=== PATIENT | female | born 1935 | race Caucasian/White ===

== ENCOUNTER 2016-09-22 06:13 | Inpatient (IN) | payer MEDICARE, OTHER ==
--- NOTE | 2016-09-21 21:30 | NUR ---
PT KENRICK GOMEZ, TOOK MEDICATION PER ORDER. APPROPRIATE CONVERSTAION AT THIS TIME. FRESH ICE TO RT HIP. CARLITOS WRAP CONTINUES, SCD'S, BARB LUBIN, HEEL PROTECTORS IN PLACE.
[~2016-09-22] VITALS: Ht 149.9 cm; Wt 42.2 kg
[~2016-09-22 06:13] MED LIST: ACETAMINOPHEN325 M1 PO; ATORVASTATIN CA10 MG PO; COLACE100 MG PO; FUROSEMIDE20 MG PO; HYDROCODON-ACE1 EA10 PO; K EFFERVESCENT25 MEQ PO; LEVOTHYROXINE25 MCG PO; LORAZEPAM0.5 MG PO; LORAZEPAM1 MG PO; METOPROLOL SUCC25 MG PO; METOPROLOL TART25 MG PO; NORCO 5-325 TA1 EACH PO; PHENOBARBITAL32.4 MG PO; POTASSIUM CHLO10 MEQ PO; POTASSIUM20 MEQ/15 PO; TRAMADOL HCL50 MG PO; TYLENOL325 MG PO; ZOFRAN ODT4 MG PO
--- NOTE | 2016-09-22 09:19 | NUR ---
PT TO MED-SURG VIA [facility]ESICA TRANSFERRED TO BED BUCKS TRACTION IN PLACE. PT RATES PAIN 10/10 DILAUDID ADMINISTERED. PT ALERT AND COOPERATIVE. ORIENTED TO ROOM. SWABS AT BEDSIDE ALONG WITH CHAP STICK. CALL LIGHT IN LAP
--- NOTE | 2016-09-22 10:08 | EKG ---
[facility] [address] [place], [place] [address] Signed Sinus rhythm with 1st degree AV block Otherwise normal ECG When compared with ECG of 20-JAN-2016 07:20, ST no longer depressed in Inferior leads Confirmed by PHILIP DOVE MD ([id number]) on 09/22/2016 10:08:17 AM Electronically Signed By: PHILIP DOVE MD 09/22/16 1008 PATIENT NAME: ROLANDPATOCONRAD ANDREWS Electrocardiogram DATE OF : 37 PHYSICIAN: PHILIP DOVE MD REPORT #: [id number] REPORT IS CONFIDENTIAL AND NOT TO BE RELEASED WITHOUT AUTHORIZATION
--- NOTE | 2016-09-22 11:28 | NUR ---
PT CONTINUES RESTING IN BED BUCKS IN PLACE. PAIN MEDS EFFECTIVE, BUT ONLY LAST ABOUT 30 MINUTES AT 0.5 MG. DOSE INCREASED TO 1 MG, PULSE OX IN PLACE. PT VERBALIZES UNDERSTANDING OF SURGICAL PROCEEDURE DENIES QUESTIONS.
[2016-09-22] MEDS ORDERED: LASIX20 MG PO (11:32)
--- NOTE | 2016-09-22 11:40 | NUR ---
PT AGREES PAIN MEDICATION HELPS APPROPRIATELY BUT CONSISTANTLY RATES PAIN 9/10. PT IS ABLE TO DOZE AND APPEARS RELAXED WHEN CHECKED ON. EXPECT SURGERY WITHIN THE HOUR
[2016-09-22] MEDS ORDERED: PHENOBARBITAL32.4 MG PO ×2 (11:58)
--- NOTE | 2016-09-22 12:35 | NUR ---
MED REC COMPLETE WITH MEDICATION REFILL HISTORY AND PATIENT INTERVIEW. PATIENT IS A GREAT HISTORIAN. PATIENT DID NOT TAKE HER PHENOBARBITOL THIS MORNING BEFORE HER FALL AND VISIT TO THE HOSPITAL.
--- NOTE | 2016-09-22 15:37 | NUR ---
09/22/16 1537 Carly Gibbs 1525 ON ARRIVAL TO PACU PATIENT IS VERY ANXIOUS, NO VERBAL BUT TENSE. SHU FELIPE ADVISES TO GIVE VERSED. ARRIVES TO PACU ON ROOM AIR. 1530 PATIENT IS MORE RELAXED AND RESTING QUIETLY AFTER VERSED. PATIENT PLACED ON 2 LITERS VIA NC.
--- NOTE | 2016-09-22 16:35 | NUR ---
PT RECEIVED FROM PACU. PT DENIES PAIN. PT SHAKING. CMS INTACT. PT ON 2L NC, O2 SATS 99% WEANED TO 1L, CONTINUOUS PULSE OX IN PLACE. PT LUNG SOUNDS CLEAR. PT DENIES NAUSEA, BOWEL TONES ACTIVE. DRESSING TO RIGHT HIP, CDI, ICE PACK IN PLACE. PT WITH SCDS AND BARB LUBIN. CALL LIGHT WITHIN REACH.
--- NOTE | 2016-09-22 17:27 | NUR ---
I WAS CALLED BY THE ATTENDING NURSE TO COME AND VISIT WITH THIS PT. WHEN I ARRIVED HER FRIEND WAS HERE ALSO. I TALKED WITH HER A LITTLE. SHE SEEMED TO INDICATE THAT SHE IS A LITTLE DEPRESSED, SO I SHARED BETTIE 4:8 WITH HER (WHATEVER IS TRUE, JUST , PURE, PRAISEWORHTY, AND OF A GOOD REPORT, THINK ON THESE THINGS). I TRIED TO CONVEY TO HER THAT IT IS IMPORTANT TO KEEP A POSITIVE ATTITUDE. I THEN PRAYED WITH HER FOR A GOOD RECOVERY AND BLESSINGS IN HER LIFE. SHE SEEMED A LITTLE MORE POSITIVE SO I LEFT. I TOLD THE NURSE IF NEED BE TO CALL ME AGAIN AND I WILL BE HAPPY TO COME BACK.
--- NOTE | 2016-09-22 17:30 | NUR ---
VSS, O2 SATS 99% ON ROOM AIR. BARB HSOE AND SCD APPLIED TO RLE. PASTORAL CARE TO BEDSIDE FOR PT SUPPORT. FRIEND AT BEDSIDE. PT DENIES PAIN. PT WITH WICK CATH IN PLACE. PT DENIES NEEDS AT THIS TIME.
--- NOTE | 2016-09-22 17:56 | NUR ---
PT TO OR TODAY FOR PINNING OF R HIP, PT BACK TO FLOOR AT 1645. PT ON 1L NC, LUNG SOUNDS CLEAR. PT DENIES PAIN. VSS. PT WITH WICK CATH IN PLACE, DRAINING YELLOW URINE. PT WITH DRESSING TO RIGHT HIP, MEPILEX, ABD AND CARLITOS, CDI. ICE PACK TO HIP. SCD, BARB LUBIN, HEEL PROTECTORS IN PLACE. IV FLUIDS INFUSING D5NS+20K AT 125 ML/HR.
--- NOTE | 2016-09-22 18:33 | NUR ---
PT COMPLAINT OF PAIN 9/10 TO RIGHT HIP, PT REQUESTING PAIN MEDICATION. 2 MG IV MORPHINE GIVEN. PT VSS, O2 SATS 100% ON 1L, WEANED TO RA. DRESSING CDI.
--- NOTE | 2016-09-22 19:00 | NUR ---
BEDSIDE SHIFT REPORT RECEIVED FROM JAMIE LANZA. PT IS CURRENTLY SITTING UP IN BED, ALERT/ORIENTED. REPORTS THAT SINCE RECEIVING PAIN MEDICATION HER PAIN HAS DECREASED FROM 9/10 TO 5/10. DENIES NAUSEA, BUT STATES THAT SHE IS HAVING SOME HEARTBURN. CALLED DR. VAZQUEZ AND RECEIVED NEW ORDERS FOR MAALOX, 30ML PO Q6 PRN. PT IS ON RA. IV INFUSING WNL. DRESSING APPEARS C/D/I. TEDS/SCDS/HEEL PROTECTORS IN PLACE. PT DENIES FURTHER REQUESTS AT THIS TIME, WILL CONTINUE TO MONITOR.
--- NOTE | 2016-09-22 20:19 | NUR ---
ASSESSMENT COMPLETED. ALERT/ORIENTED. REPORTS PAIN HAS INCREASED TO 9/10, 2MG IV MORPHINE GIVEN. LUNGS CLEAR, DIM IN BASES, RA, PULSE OX. HR REUGLAR, TELE #9, HR: 89. BOWEL TONES ACTIVE, MAALOX GIVEN FOR HEARTBURN, DENIES NAUSEA. REPORTS MILD NUMBNESS IN BILATERAL FEET, IS ABLE TO FEEL WHEN I TOUCH THEM, PEDAL PULSES PALPATED, SLIGHTLY FAINT. DRESSING TO RIGHT HIP C/D/I, NO SHADOWING NOTED, ICE PACK IN PLACE. TEDS, SCDS, AND HEEL PROTECTORS IN PLACE. IV PATENT, INFUSING WNL, D5NS +20MEQ K+ @125. PT DENIES FURTHER REQUESTS, CALL LIGHT IS WITHIN REACH.
--- NOTE | 2016-09-22 22:55 | NUR ---
AT 2200 I&O, PT HAD ONLY HAD 125ML UO SINCE RETURNING FROM SURGERY TODAY AT 1630. SPOKE WITH DR. DOVE WHO ORDERED A ONE TIME 500ML NS BOLUS.
--- NOTE | 2016-09-23 01:45 | NUR ---
ASSESSMENT COMPLETED. PT REPORTS 10/10 PAIN IN RIGHT HIP, 1MG IV DILAUDID GIVEN. LUNGS CLEAR, DIM IN BASES, 1L VIA NC IN PLACE. HR REGULAR, TELE #8, HR:82. BOWEL TONES ACTIVE, DENEIS NAUSEA. DRESSING TO HIP C/D/I, NEW ICE PACK PROVIDED. PT STATES NUMBNESS IN FEET HAS RESOLVED. NO EDEMA NOTED, CMS INTACT. TEDS/SCDS/HEEL PROTECTORS IN PLACE. IV PATENT, INFUSING WNL. PT DENIES FURTHER REQUESTS AT THIS TIME. CALL LIGHT IS WITHIN REACH.
--- NOTE | 2016-09-23 04:20 | NUR ---
PT CALLED TO REQUEST PAIN MEDICATION. STATES SHE WAS SLEEPING AND WHEN SHE WOKE UP HER RIGHT HIP WAS HURTING "REALLY BAD". RATES PAIN 10/10, 4MG IV MORPHINE GIVEN. DENIES FURTHER REQUESTS AT THIS TIME, WILL CONTINUE TO MONITOR.
--- NOTE | 2016-09-23 05:05 | NUR ---
PT HAD DECENT NIGHT, SLEPT WELL. WOULD WAKE UP AND REPORT 10/10 PAIN, BUT PAIN WAS RELIEVED WITH PRN DILAUDID AND MORPHINE. LUNGS CLEAR, PULSE OX, DESAT WHEN SLEEPING, 1L O2 VIA NC IN PLACE. HR REGULAR, TELE #9. BOWEL TONES ACTIVE, DENIED NAUSEA. WICK IN PLACE, LOW UO, ONE TIME 500ML NS BOLUS GIVEN, UA SENT. DRESSING TO RIGHT HIP C/D/I, ICE PACK IN PLACE. TEDS, SCD'S, AND HEEL PROTECTORS ON. PT HAS NOT YET BEEN OOB. TOLERATED CLEAR LIQUIDS, ADVANCED TO REGULAR DIET. IV PATENT, D5NS + 20MEQ K+ @125ML/HR. IV ABX: ANCEF. PT ANXIOUS, NEEDS FREQUENT REASSURANCE.
--- NOTE | 2016-09-23 05:44 | NUR ---
ASSESSMENT COMPLETED. REPORTS 10/10 PAIN, STATES LAST DOSE OF MORPHINE DID NOT HELP. PRN TORADOL AND 2 TABS NORCO GIVEN WITH SOME PUDDING AND CRACKERS. WICK D/C'D, URINE OUTPUT IMPROVED, 150ML OUT IN LAST 4 HOURS. NO OTHER CHANGES FROM PREVIOUS ASSESSMENT. WILL CONTINUE TO MONITOR.
--- NOTE | 2016-09-23 06:55 | NUR ---
PT RESTING WITH EYES CLOSED. STATES HER PAIN IS 9/10 IN RIGHT HIP, 1MG IV DILAUDID GIVEN. PT REQUESTS ICE CREAM, PROVIDED. DENIES NAUSEA. DENIES FURTHER REUQESTS.
--- NOTE | 2016-09-23 07:00 | NUR ---
BEDSIDE HANDOFF REPORT RECEIVED FROM TEXTILE COATING MACHINE OPERATOR RN. PT RESTING IN BED. CONTINUOUS PULSE OX, 95%, 1L NC. IV FLUIDS INFUSING AT 125 ML/HR. PT LOOKING AT MENU FOR BREAKFAST.
--- NOTE | 2016-09-23 07:49 | NUR ---
PT RESTING IN BED, ASSISTED WITH EATING BREAKFAST. PT WITH HIGH ANXIETY, EASILY BECOMES FRUSTRATED. PT ON 1L NC, O2 SATS 94%, CONTINUOUS PULSE OX IN PLACE. IV FLUIDS INFUSING D5NS+20K AT 125ML/HR. PT LUNG SOUNDS CLEAR. BOWEL TONES ACTIVE, DENIES NAUSEA, TOLERATING REGULAR DIET. PT CONSISTENTLY RATING TORREY 9/10 TO RIGHT HIP, PT APPEARS COMFORTABLE. DRESSING TO RIGHT HIP CDI, ICE PACK IN PLACE. SCDS, BARB HOSE, AND HEEL PROTECTORS ON. CMS INTACT. PT DENIES NEEDS AT THIS TIME.
--- NOTE | 2016-09-23 08:42 | NUR ---
PATIENT IS SITTING UP EATING BREAKFAST IN BED. PATIENT WOULD LIKE TO WASH UP AFTER SHE IS DONE EATING. NO OTHER REQUESTS OR COMPLAINTS AT THIS TIME.
--- NOTE | 2016-09-23 09:45 | NUR ---
PHYSICAL THERAPY TO BEDSIDE TO EVAULATE OPT. PT REQUESTING PAIN MEDICATION. PT RATING PAIN 8/10. PT GIVEN 2 MG IV MORPHINE AND 2 TAB NORCO.
--- NOTE | 2016-09-23 10:00 | NUR ---
PT ASSISTED TO CHAIR, 2PA WITH FWW. PT TOLERATED WELL.
--- NOTE | 2016-09-23 11:10 | NUR ---
BLOOD TRANSFUSION BAG 1 OF 2 STARTED. SECOND RN VERIFICATION OF PT AND UNIT WITH RADHA AYALA. RN REMAINED WITH PT DURING FIRST 15 MINUTES OF INFUSION, NOS/S OF REACTION. VSS. PT DENIES SOB OR CHILLS. PT DENIES NEEDS AT THIS TIME. PT SITTING IN CHAIR, COMFORTABLE, DENIES NEED TO RETURN TO BED.
--- NOTE | 2016-09-23 13:05 | NUR ---
PT ALERT/ORIENTED. PT LUNG SOUNDS CLEAR, O2 SATS 94% ON 1L NC. PT DENIES SOB. PT RESTING IN BED. PT RECEIVING UNIT 1 OF 2 OF PRBC, TOLERATING WELL, NO S/S OF REATION. PT COMPLAINT OF HEARTBURN, UNRELIEVED BY MAALOX, PT REQUESTING PEPCID, DISCUSSED WITH DR. PETTY MD TO ORDER. PT TOLERATIGN REGULAR DIET, SMALL APPETITE. CMS INATCT, DRESSIGN TO R HIP CDI. SCD, BARB HOSE AND HEEL PROTECTORS IN PLACE. PT DENIES NEEDS AT THIS TIME.
--- NOTE | 2016-09-23 14:15 | NUR ---
Patient up to commode at this time with primary nurse. Vitals taken by primary nurse.
--- NOTE | 2016-09-23 14:17 | NUR ---
UNIT 2 OF 2 OF PRBC STARTED. SECOND RN VERFICIATION OF PT AND BLOOD UNIT COMPLETED WITH MANDO AYALA. RN STAYED WITH PT DURING FIRST 15 MINUTES OF INFUSION. NO S/S OF TRANSFUSION REACTION. PT DENIES SOB, CHILLS, CHEST PAIN .
--- NOTE | 2016-09-23 15:30 | NUR ---
PT VERY EMOTIONAL, HIGH ANXIETY. PT ALLOWED TIME TO DISCUSS CONCERNS AND FEARS. REASSURANCE PROVIDED. PT REQUESTING TO USE BSC, ASSISTED BY NURSE AIDE.
--- NOTE | 2016-09-23 17:32 | NUR ---
TRANSFUSION 2 OF 2 COMPLETED. NO S/S OF REACTION. PT SALINE LOCKED. PT DENIES NEEDS AT THIS TIME.
--- NOTE | 2016-09-23 17:51 | NUR ---
Patient sitting up in bed watching tv. Vitals taken by RN.
--- NOTE | 2016-09-23 18:28 | NUR ---
PT ALERT/ORIENTED. PT RECEIVED 2 UNITS PRBC, TOLERATED WELL. PT ON 1L NC, O2 SATS >92%, DESATS ON ROOM AIR. PT ABLE TO STAND PIVOT TO CHAIR/BSC, WORKED WITH PHYSICAL THERAPY. PT CONSISTENTLY RATES PAIN 9/10, IV TORADOL, IV MORPHINE, IV DILAUDID, PO NORCO GIVEN, PT APPEARS COMFORTABLE. PT WITH HIGH ANXIETY/EMOTIONAL, THERAPEUTIC COMMUNICATION AND REASSURANCE. DRESSIGN TO RIGT HIP, CDI. WICK REMOVED THIS AM, DIFFICULTY VOIDING, IMPROVING.
--- NOTE | 2016-09-23 18:55 | NUR ---
PT RATING PAIN 9/10, REQUESTING PAIN MEDICATION. GIVEN 1MG IV DILAUDID. IV ACCESS OBTAINED TO L WRIST, FIELD START DISCONTINUED. PT TOLERATED WELL. LIMITED AMANDA STATUS.
--- NOTE | 2016-09-23 19:10 | NUR ---
BEDSIDE REPORT RECEIVED FROM OFFGOING NURSE. PT SITTING UP IN BED. STATES THAT SHE NEEDS TO USE THE BATHROOM. FARE COLLECTOR NOTIFIED. PT DENIES OTHER NEEDS. CALL LIGHT WITHIN REACH.
--- NOTE | 2016-09-23 20:27 | NUR ---
PT ASSESSMENT COMPLETED. PT RATES PAIN /10, PRN PAIN MEDICATION GIVEN AND PT RATES 7/10. PT DROWSY, FALLS ASLEEP AND WAKES EASILY. DRESSING TO L HIP REMAINS C/D/I. CMS INTACT, PEDAL PULSES PRESES TO BLE'S. TEDS AND SCD'S ALSO PRESENT TO BLE'S. PT DENIES OTHER NEEDS AT THIS TIME, CALL LIGHT USE REINFORCED, PT STATES UNDERSTANDING.
--- NOTE | 2016-09-23 22:30 | NUR ---
PT FOUND SITTING AT THE EDGE OF BED WITH TELE LEADS REMOVED, O2 REMOVED. PT IS UPSET AND CRYING, STATES THAT SHE CANNOT REMEMBER WHERE SHE IS. REORIENTED PT TO LOCATION, PT IS ACCURATELY ABLE TO STATE WHY SHE IS IN THE HOSPITAL, AND SITUATION LEADING UP TO. PT UP TO USE THE COMMODE WITH 2 PERSON ASSIST. PT IS ORIENTED, CONTINUES TO BE UPSET AND CRYING, STATES THAT SHE THINKS MAYBE SHE WAS DREAMING. PT CALMS WITH CONVERSATION. ASSISTED OFF THE COMMODE AND BACK TO BED. BED ALARM SET AND HOSPITALIST NOTIFIED OF ACUTE CHANGE IN MENTAL STATUS.
--- NOTE | 2016-09-24 00:25 | NUR ---
PT RESTING IN BED WITH EYES CLOSED, RESPIRATIONS EVEN AND UNLABORED. ALL PRECAUTIONS REMAIN IN PLACE. CALL LIGHT WITHIN REACH.
--- NOTE | 2016-09-24 02:09 | NUR ---
PT ASSESSMENT COMPLETED. PT CONTINUES TO BE DISORIENTED TO PLACE AND EVENT. PT REORIENTED BY THIS SILVERWARE ETCHER. PT STATES UNDERSTANDING. DRESSING TO R HIP IS C/D/I. TEDS AND SCD'S TO BLE'S. PT DENIES PAIN OR NAUSEA. WARM BLANKET GIVEN, PT DENIES OTHER NEEDS. BED ALARM ACTIVE. CALL LIGHT WITHIN REACH.
--- NOTE | 2016-09-24 04:32 | NUR ---
PT REMAINS DISORIENTED TO PLACE AND EVENT. PT IS ANGRY, STATES "WHY AM I TIED UP", ATTEMPTING TO REMOVE SURGICAL DRESSING. PT STATES "ONLY A CONNIVING PERSON WOULD GIVE ME WATER PILLS AND LAXATIVES". PT ASKS "ARE YOU EVEN A NURSE, WHAT DID YOU DO TO ME, MY HIP HURTS". PT REORIENTED, GIVEN PRN PAIN MEDICATION. DRESSING TO HIP REMAINS C/D/I. BARB LUBIN AND SCD'S IN PLACE. PT UP TO USE BSC WITH 2 PA AND FWW.
--- NOTE | 2016-09-24 05:28 | NUR ---
PT DISORIENTED TO PLACE AND EVENT THIS SHIFT. HOSPITALIST NOTIFIED. PT BECAME ANGRY TOWARDS END OF SHIFT, DOES NOT BELIEVE THAT SHE IS IN HOSPITAL, REQUIRING FREQ REORIENTATION. PRN DILAUDID GIVEN X 2 THIS SHIFT. DRESSING TO R HIP C/D/I. BARB AND SCDS PRESENT. IV SL. BED ALARM IN PLACE. 2 PA WITH FWW. PT ON 2 LPM O2 FOR DESATURATIONS DOWN TO 88%, PT UP TO 95% WITH 2 LPM.
--- NOTE | 2016-09-24 07:41 | NUR ---
PT IN BED, JESSICA RN PLACED WICK CATHETER. PT ASSISTED TO REPOSITION. FRIEND AT BEDSIDE VISITING.
--- NOTE | 2016-09-24 07:44 | NUR ---
patient is a little anxious this morning, she recieved a floey. will keep looking in on her to make sure she is as comfortable here as we can help make her.
--- NOTE | 2016-09-24 09:14 | NUR ---
PT C/O 10/10 PAIN TO RIGHT HIP, DESCRIBED SHARP PAIN. GAVE NORCO 7.5/325 MG 2 TABS PO PRN. PT ATE 35% OF BREAKFAST. TOLERATED WELL, DRANK 580 CC FLUID WITH BREAKFAST. DRESSING TO RIGHT HIP C/D/I WITH SMALL AMOUNT OF SHADOWING PRESENT ON MEPILEX DRESSING. PT ALERT, ORIENTED X 4. PLEASANT AND COOPERATIVE. PROVIDED WITH FRESH ICE WATER AND WARM BLANKET. PT DENIED OTHER NEEDS.
--- NOTE | 2016-09-24 09:42 | NUR ---
PATIENT WAS LYING IN BED, I DID VITAL SIGNS, SHE HAD A FEVER OF 99.0, NURSE WAS NOTIFIED. WE WILL ATTEMPT TO GET HER UP IN THE CHAIR, SHE IS ALSO DOING IS BREATHING.
--- NOTE | 2016-09-24 12:19 | NUR ---
PT WORKED WITH PHYSICAL THERAPIST. IS NOW SITTING UP IN RECLINER WITH LEGS ELEVATED. PT CHEERFUL, REPORTS THAT PAIN TO RIGHT HIP HAS IMPROVED, IS NOW A 4/10. IS CURRENTLY EATING LUNCH. PROVIDED WITH FRESH ICE WATER.
--- NOTE | 2016-09-24 13:24 | NUR ---
PT C/O HEARTBURN, GAVE PT TUMS 500 MG PO PRN. PROVIDED PT WITH FRESH ICE WATER. PT DENIED OTHER NEEDS.
--- NOTE | 2016-09-24 14:43 | NUR ---
PT C/O 10/ PAIN TO RIGHT HIP. GAVE NORCO 7.5/325 MG 2 TABS PO PRN. PT DENIED OTHER NEEDS. PROVIDED WITH WARM BLANKETS BY SUPPOSITORY MOLDING MACHINE OPERATOR.
--- NOTE | 2016-09-24 15:25 | NUR ---
PT UP WITH 2 PERSON ASSIST WITH FWW, TOLERATING TOUCH TOE WEIGHT BEARING TO RLE. WICK CATHETER IN PLACE FOR URINE RETENTION, WAS PLACED THIS AM, AND PER ORDER IS TO BE D/C'D TOMORROW AM AT 0600. PT TOLERATING REGULAR DIET WELL, DRINKING FLUIDS WITHOUT ISSUE. URINE OUTPUT HAS BEEN QUANTITY SUFFICIENT, NO BM THIS SHIFT. RIGHT HIP DRESSING C/D/I, WITH SMALL AREA OF SHADOWING PRESENT ON MEPILEX, NO CHANGE TO THIS FROM BEGINNING OF SHIFT. BILATERAL PEDAL PULSES FAINT BUT PALPABLE. PT REPORTS AREA OF "SLIGHT" NUMBNESS TO RIGHT LATERAL THIGH THAT HAS BEEN PRESENT SINCE SURGERY. TOOK NORCO 2 TABS PRN X 2 DOSES THIS SHIFT, PT REPORTED THAT PAIN HAS BEEN WELL CONTROLLED WITH THIS.
--- NOTE | 2016-09-24 22:30 | NUR ---
MEDICATED FOR PAIN PRIOR TO THIS HOUR. PT PLEASANT, NOT SURE OF THE DATE BUT STATES SHE KNOWS SHE IS IN THE HOSPITAL AND TOLD THIS NURSE HOW SHE FELL. DID SAY SHE LIVED AT [facility] FOR "29" YEARS.
--- NOTE | 2016-09-24 23:45 | NUR ---
EYES CLOSED, RESP EVEN AND UNLABORED.
--- NOTE | 2016-09-25 02:00 | NUR ---
BED ALARM SOUNDED, PT WAS LEANING UP TO MORE OF A SITTING POSITON LOOKING AROUND HER ROOM. WHILE SHE SAID SHE KNEW WHERE SHE WAS, THERE WAS A CONFUSED LOOK IN HER EYES. SAT WITH PT FOR 10 MIN OR SO, VISITING ABOUT HER [place], HER FRIENDS, ETC AT [facility] TO DISTRACT HER. ASKED ABOUT HER PAIN, SHE SAID SHE WAS OK, DIDN'T WANT ANYTHING FOR PAIN AT THIS TIME.
--- NOTE | 2016-09-25 06:42 | NUR ---
WOKE PT FOR SCHEDULED MED. ASKED ABOUT HER PAIN. MADE A FACE, ASKED IF SHE WANTED SOMETHING FOR PAIN, SHE SAID YES. DRANK WATER, REPLACED THE HEEL PROTECTORS THAT HAD FALLEN OFF.
--- NOTE | 2016-09-25 08:00 | NUR ---
WICK CATH CARE DONE. HANDS AND FACE WASHED. 1 PERSON ASSIST WITH WALKER TO CHAIR. PATIENT DID WELL WITH TOE TOUCH. LINENS CHANGED. FRESH ICE WATER AND ICE PACKS X2 RIGHT HIP. PATIENT EATING BREAKFAST WITH CALL BUTTON IN REACH. WARM BLANKET GIVEN. NO OTHER NEEDS AT THIS TIME.
--- NOTE | 2016-09-25 08:18 | NUR ---
PT SITTING UP IN RECLINER EATING BREAKFAST. PROVIDED WITH FRESH ICE PACKS TO RIGHT LATERAL THIGH/HIP, WELL FRESH ICE WATER BY VOIP NETWORK TECHNICIAN. RATES PAIN TO RIGHT HIP 8/10. CMS INTACT WITH EXCEPTION OF AREA TO RIGHT LATERAL THIGH THAT REMAINS "SLIGHTLY NUMB", WHICH PT REPORTS HAS BEEN THE CASE SINCE SURGERY. DRESSING TO RIGHT HIP C/D/I, WITH FAINT SHADOWING TO MEPILEX, NO CHANGE FROM ASSESSMENT YESTERDAY.
--- NOTE | 2016-09-25 08:40 | NUR ---
PT REPORTED 8/10 PAIN TO RIGHT HIP. GAVE NORCO 7.5/325 MG 1 TAB PO PRN.
--- NOTE | 2016-09-25 08:54 | NUR ---
WICK CATHETER REMOVED WITHOUT ISSUE. PT TOLERATED WELL.
--- NOTE | 2016-09-25 09:18 | NUR ---
JULIÁN SITTING UP IN CHAIR DOING ORAL CARE.
--- NOTE | 2016-09-25 10:47 | NUR ---
PT WORKED WITH PHYSICAL THERAPY, ATTEMPTED TO VOID ON TOILET, UNABLE TO URINATE THUS FART, PT STATED THAT SHE WILL ATTEMPT AGAIN IN A WHILE. PT RATES PAIN TO RIGHT HIP 08/26. THIS RN ASKED PT IF SHE FELT LIKE SHE NEEDED FURTHER PAIN MEDICATION TO CONTROL HER PAIN, BUT PT STATED THAT SHE FEELS THAT THE CURRENT PAIN MEDICATIONS ARE COVERING HER PAIN EFFECTIVELY, AND DOES NOT WANT FURTHER PAIN MEDICATION. PT IN BED AT THIS TIME. DENIES NEEDS.
--- NOTE | 2016-09-25 13:36 | NUR ---
BROUGHT PT TO BATHROOM AND SHE USED TO COMMODE, AND GOT HER BACK TO BED WITH NO ISSUES EXCEPT COMPLAINED OF PAIN. I NOTIFIED THE NURSE AND ALSO GOT HER TWO NEW ICE BAGS FOR HER HIP
--- NOTE | 2016-09-25 13:40 | NUR ---
PT C/O 12/26 PAIN TO RIGHT HIP. GAVE NORCO 7.5/325 MG 2 TABS PO PRN. PT NOW WORKING WITH PHYSICAL THERAPIST. PROVIDED WITH FRESH ICE WATER.
--- NOTE | 2016-09-25 14:24 | NUR ---
PATIENT BACK IN BED AFTER PHYSICAL THERAPY. RESTING WITH EYES CLOSED. NO OTHER NEEDS AT THIS TIME.
--- NOTE | 2016-09-25 14:33 | NUR ---
FAXED CHART NOTES TO [facility] PER THE PT REQUEST FOR A SNF PLACEMENT. PT VERY SURE THAT IS WHERE SHE WANTS TO GO FOR REHAB. CHART NOTES SENT INCLUDED FACESHEET, ER NOTES, H AND P, PROG NOTES, OP NOTES, IMAGING, MEDS, AND LABS PT EVAL AND NOTES.
--- NOTE | 2016-09-25 15:03 | NUR ---
PATIENT IS A LIGHT EATER. SHE TRIED EATING SOME BREAKFAST BUT COULDN'T FINISH IT. SHE DIDN'T WANT LUNCH SO SHE IS DRINKING A CHOCOLATE ENSURE ENLIVE. SHE LIKES IT. SHE IS ON A REGULAR DIET. HER BMI IS 18.8 WHICH IS CLOSE TO NORMAL FOR HER. DEFINITELY CONTINUE TO PROVIDE ENSURE IF PATIENT EATS LESS THAT 50% OF MEALS OR DOESN'T WANT TO EAT A MEAL. ENCOURAGE FOOD FIRST. WILL CONTINUE TO MONITOR.
--- NOTE | 2016-09-25 15:22 | NUR ---
PATIENTS O2 LEVEL AT 85% WHILE SLEEPING. PUT 1L OF O2 NC ON PATIENT.
--- NOTE | 2016-09-25 16:03 | NUR ---
PT UP WITH 1 PERSON ASSIST WITH FWW, TOE TOUCH WEIGHT BEARING TO RLE, PT COMPLIANT WITH THIS. TOLERATING REGULAR DIET WELL, AND DRANK CHOCOLATE ENSURE WITH LUNCH. WICK CATHETER D/C'D THIS AM, AND PT HAS BEEN VOIDING QUANTITY SUFFICIENT CLEAR YELLOW URINE. BOWEL TONES ACTIVE X 4 QUADRANTS, BUT PT DENIES PASSING GAS, AND HAS HAD NO BM THUS FAR. LUNGS CTA, BUT DIMINISHED IN BASES. WAS ON 1L O2 VIA NC THIS AM, TITRATED TO RA THIS AFTERNOON, PT'S O2 SATS WERE IN MID TO HIGH 90s WHILE AWAKE, BUT PT'S SATS DROPPED TO HIGH 80s WHEN SHE FELL ASLEEP, SO PT WAS PLACED ON 1L O2 AGAIN. CONTINUOUS PULSE OX IN PLACE. RIGHT HIP DRESSING UNCHANGED, CARLITOS, ABD, OPSITE, AND MEPILEX IN PLACE, SMALL AMOUNT OF SHADOWING PRESENT TO MEPILEX. CMS TO RLE INTACT WITH EXCEPTION OF RIGHT LATERAL THIGH FROM UPPER KNEE TO MID THIGH, WHICH PT REPORTS HAS BEEN "SLIGHTLY NUMB" SINCE SURGERY. PT HAD NORCO 7.5/325 MG X2 DOSES THIS SHIFT, AND DILAUDID 1 MG IV PRN X 1 DOSE THIS SHIFT. PT REPORTS GOOD PAIN CONTROL. WORKED WITH PHYSICAL THERAPY X 2 THIS SHIFT, TOLERATED WELL. ALERT, ORIENTED X 4. .
--- NOTE | 2016-09-25 17:05 | NUR ---
RECIEVED BEDSIDE REPORT FROM CARTER AYALA. PT AKSHYAM IN BED, ORIENTED. DENIES PAIN, NAUSEA OR OTHER CONCERNS AT THIS TIME. DRESSING CDI WITH 50 CENT SIZED OLD SHADOWING NOTED TOWARDS THIGH ON RIGHT HIP DRESSING. CALL LIGHT WITHIN REACH.
--- NOTE | 2016-09-25 18:15 | NUR ---
PATIENT BACK TO BED. FRESH ICE PACK ADN ICE WATER. WARM BLANKET ON. CALL BUTTON IN REACH.
--- NOTE | 2016-09-25 19:15 | NUR ---
BEDSIDE REPORT RECEIVED FROM OFF GOING NURSE. PT RESTING WITH EYES CLOSED. CALL LIGHT WITHIN REACH.
--- NOTE | 2016-09-25 21:46 | NUR ---
PT ASSESSMENT COMPLETE. PT RESTING WITH EYES CLOSED, APPEARS TO BE SLEEPING. WAKES EASILY. DRESSING TO R HIP C/D/I, SMALL AMOUNT OF SHADOWING PRESENT PER PREVIOUS SHIFT'S REPORT. BARB LUBIN AND SCD'S IN PLACE. PT DENIES NEEDS AT THIS TIME. CALL LIGHT WITHIN REACH.
--- NOTE | 2016-09-26 00:30 | NUR ---
PT CALLING OUT FROM ROOM, "GUS". PT UNCERTAIN OF WHERE SHE IS AND WHY. REORIENTED PT, HOWEVER PT REMAINS UNABLE TO ACCURATELY STATE WHERE SHE IS. PT ASSISTED TO USE THE COMMODE WITH 1 PA AND FWW. PT TOLERATED WELL AND ASSISTED BACK TO BED. PT DENIES PAIN. CALL LIGHT EDUCATION PROVIDED, CALL LIGHT WITHIN REACH.
--- NOTE | 2016-09-26 02:55 | NUR ---
PT ASSESSMENT COMPLETED. PT CONTINUES TO BE DISORIENTED TO PLACE AND EVENT DESPITE REORIENTATIONS. SHADOWING TO DRESSING ON RLE UNCHANGED FROM PREVIOUS ASSESSMENT. TEDS, SCD'S, AND HEEL PROTECTORS IN PLACE. PT DENIES OTHER NEEDS. CALL LIGHT WITHIN REACH.
--- NOTE | 2016-09-26 03:40 | NUR ---
PT UP TO USE BSC. PT MOANING. RATES PAIN 10/10. PRN PAIN MEDICATION ADMINISTERED, ICE APPLIED TO R HIP. WARM BLANKET PROVIDED. SCD'S, TEDS, AND HEEL PROTECTORS IN PLACE. PT DENIES OTHER NEEDS. CALL LIGHT WITHIN REACH.
--- NOTE | 2016-09-26 04:52 | NUR ---
PT DISORIENTED TO PLACE AND EVENT. O2 @ 1LPM. NO BM SINCE 09/21. UO QS. MEPILEX AND OPSITE TO R HIP WITH SMALL AMOUNT OF SHADOWING PRESENT, UNCHANGED THROUGHOUT SHIFT. PT DENIES NUMBNESS OR TINGLING. CMS INTACT. TOE TOUCH WEIGHT BEARING, 1 PA TO BSC WITH FWW. PRN PERCOCET GIVEN X 1 THIS SHIFT.
--- NOTE | 2016-09-26 05:38 | NUR ---
PT RESTING IN BED WITH EYES OPEN. RATES PAIN 06/26, STATES "IT'S MUCH BETTER." PT A&OX4. DENIES NEEDS. CALL LIGHT WITHIN REACH. LAB AT BEDSIDE.
[2016-09-26] MEDS ORDERED: HYDROCODON-ACE1 EA11 PO (09:04)
[2016-09-26] MEDS ORDERED: XARELTO10 MG PO (09:04)
--- NOTE | 2016-09-26 09:26 | NUR ---
PT SHOWERED WITH ASSISTANCE FROM STATION SUPERINTENDENT, ALSO PROVIDED WITH ORAL CARE, INCLUDING CLEANING DENTURES. PROVIDED WITH FRESH ICE WATER. PT ATE 50% OF BREAKFAST, AND IS SIPPING A CHOCOLATE ENSURE. C/O 12/26 PAIN, GAVE NORCO 7.5/325 MG 2 TABS PO PRN. PT NOW SITTING UP IN BED, AGREED TO GET OOB TO CHAIR ONCE PAIN MEDICATION TOOK EFFECT.
--- NOTE | 2016-09-26 11:45 | NUR ---
PT SITTING UP IN RECLINER. C/O 12/26 PAIN. ASSISTED TO REPOSITION IN CHAIR, HAS ICE PACK TO RIGHT HIP INCISION AREA, AND GAVE DILAUDID 1 MG IV PRN. PT DENIED OTHER NEEDS AT THIS TIME.
--- NOTE | 2016-09-26 14:03 | NUR ---
PT SLEEPING, PULSE OXYMETER ALARMED, INDICATED THAT OXYGEN SATURATION LEVEL WAS 79% ON RA. PLACED PT ON 2L O2 VIA NC, SAT INCREASED TO 94% WITHIN [address] VAZQUEZ NOTIFIED THAT PT HAS BEEN NAUSEATED, HAS TAKEN PRN ZOFRAN, THEN PRN PHENERGAN FOR C/O NAUSEA, AND ALSO NOTIFIED DR. VAZQUEZ THAT PT DID NOT FEEL THAT SHE COULD TOLERATE HER ORDERED PO PAIN MEDICATION, SO PT WAS GIVEN DILAUDID 1 MG IV X 2 DOSES FOR C/O PAIN TO RIGHT HIP 8-12/26. ALSO NOTIFIED DR. VAZQUEZ THAT PT'S OXYGEN LEVEL DROPPED TO 79% ON RA, AND INCREASED TO 94% WITH 2L O2. RECIEVED TORB TO XRAY RIGHT HIP.
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
--- NOTE | 2016-09-26 14:53 | NUR ---
PT CONTINUES TO C/O NAUSEA, ALSO C/O 7/10 PAIN TO RIGHT HIP. PT TOOK NORCO 7.5/325 MG 2 TABS PO PRN. HAS NO FUTHER ANTI NAUSEA MEDICATIONS AVAILABLE AT THIS TIME. HAS HAD NO EPISODES OF EMESIS. DID DRINK 75% OF A VANILLA ENSURE.
[2016-09-26] MEDS ORDERED: LORAZEPAM0.5 MG PO (15:51)
[2016-09-26] MEDS ORDERED: PHENOBARBITAL32.4 MG PO (15:51)
--- NOTE | 2016-09-26 15:59 | NUR ---
PT CO OF NAUSEA AND SEEN BY DR BLEDSOE. PT HAS HAD SOME ANTINAUSEA MEDS, ATTEMPTED TO GET A HOLD OF DR VAZQUEZ, NO ANSWER. DR BLEDSOE STATES WE PROBABLY SHOULD JUST KEEP HER ANOTHER NIGHT TO SEE IF NAUSEA CLEAR. CALLED AND INFORM NISHA AT [facility] OF THIS.
--- NOTE | 2016-09-26 16:07 | NUR ---
SPOKE WITH DR. BLEDSOE, WHO HAD SEEN PT. DR. BLEDSOE STATED THAT HE RECOMENDS PT REMAIN IN HOSPITAL OVER NIGHT. UPDATED DR. VAZQUEZ VIA TELEPHONE, NOTIFIED HIM THAT PT IS STILL COMPLAINING OF NAUSEA, THAT DR. BLEDSOE HAD ADDED ORDER FOR PROTONIX, WELL INCREASED PT'S MIRILAX ORDER TO TID. ALSO NOTIFIED DR. VAZQUEZ THAT PT DID TAKE NORCO 7.5/325 MG PRN PO, AND HAS HAD NO EMESIS THUS FAR. ASKED DR. VAZQUEZ IF HE WAS OK WITH PT REMAINING IN HOSPITAL OVER NIGHT, WHO STATED THAT HE WAS. RECIEVED TORB TO D/C IV DILAUDID.
--- NOTE | 2016-09-26 16:37 | NUR ---
PT UP, WORKED WITH PHYSICAL THERAPIST, NOW BACK IN BED. ANTONETTE Gill RN ASSISTING PT IN STYLING HER HAIR.
--- NOTE | 2016-09-26 17:07 | NUR ---
PT DID WELL THIS AM, WORKED WITH PHYSICAL THERAPY, REPORTED GOOD PAIN CONTROL WITH PO PRN ANALGESIC, HAD A SUPPOSITORY, AND HAD A MEDIUM FORMED BM. THIS AFTERNOON, PT BEGAN TO C/O NAUSEA. PT RECIEVED ZOFRAN PRN, AND THEN PHENERGAN PRN FOR C/O NAUSEA WITH LITTLE EFFECT. DR. VAZQUEZ AND DR. BLEDSOE AWARE. PT STARTED ON PROTONIX, AND MIRILAX WAS INCREASED TO TID. PT WAS UNABLE TO TOLERATE PO ANALGESIC THIS AFTERNOON, AND RECIEVED DILAUDID 1 MG IV X 2 DOSES FOR C/O 8-10 PAIN. PT DID TOLERATE PRN NORCO AFTER THIS, DESPITE C/O CONTINUED NAUSEA. HAS HAD NO EMESIS. DR. VAZQUEZ AWARE OF THIS, AND GAVE ORDERS TO D/C IV DILAUDID. PT WAS ABLE TO PARTICIPATE IN PHYSICAL THERAPY THIS AFTERNOON. PLAN FOR PT TO DISCHARGE TO [facility] FOR [facility]. PT WAS TITRATED TO RA THIS AM, DID TOLERATE WELL FOR SEVERAL HOURS, BUT DESATURATED TO 79% WHEN SHE FELL ASLEEP, SO PT PLACED ON 2L O2 VIA NC. TITRATED TO 1L O2 VIA NC, WHICH PT IS TOLERATING WELL, WITH SATS RANGING FROM 92-96%.
--- NOTE | 2016-09-26 20:56 | NUR ---
PT ASSESSMENT COMPLETE. PT DROWSY, SLEEPING INTERMITTENTLY THROUGH ASSESSMENT. PT DENIES NEED FOR PAIN MEDICATION AT THIS TIME, APPEARS COMFORTABLE. IV SALINE LOCKED, PATENT AND INTACT. DRESSING TO RIGHT HIP HAS OLD SHADOWING NOTED. PT ON 1 LPM O2 VIA NASAL CANNULA, SATS 96% PER CONTINUOUS PULSE OXIMETER. CALL LIGHT WITHIN REACH. PT DENIES ANY FURTHER NEEDS AT THIS TIME.
--- NOTE | 2016-09-26 23:57 | NUR ---
CALLED DR BLEDSOE REGARING LOW BLOOD PRESSURE, RECEIVED NEW ORDERS FOR 500 ML NS BOLUS OVER 2 HOURS.
--- NOTE | 2016-09-27 01:50 | NUR ---
PT PULLED OUT IV, PULLED OFF O2 AND PULSE OXIMETER. PT CONFUSED AT TIMES, BUT PLEASANT. BOLUS NOT COMPLETED, WILL NOTIFY MD. DRESSING TO HIP IS C/D/I, UNCHANGED SHADOWING NOTED. PT APPEARS COMFORTABLE AT THIS TIME, NO SIGNS OF PAIN OR DISCOMFORT. PT PLACED BACK ON 2 LPM FOR ROOM AIR SATS 85%, SATS NOW 93% ON 2 LPM, PULSE OXIMETER IN PLACE. CALL LIGHT WITHIN REACH. PT DENIES ANY FURTHER NEEDS AT THIS TIME.
--- NOTE | 2016-09-27 05:05 | NUR ---
PT SLEEPING, RR EVEN AND UNLABORED. PT APPEARS COMFORTABLE AT THIS TIME. CALL LIGHT WITHIN REACH.
--- NOTE | 2016-09-27 06:00 | NUR ---
PT CONFUSED AT NIGHT. SLEPT MOST OF NIGHT. PULLED OUT IV. PULLED OFF PULSE OX AND O2 SEVERAL TIMES, REPLACED. PT ON 2 LPM DURING SLEEP. PT PLEASANT AND COOPERATIVE. DRESSING TO HIP IS C/D/I, OLD SHADOWING NOTED, UNCHANGED. PT RECEIVING NORCO FOR PAIN. PT PLAN IS TO POSSIBLY D/C TO [facility] TODAY.
--- NOTE | 2016-09-27 06:37 | NUR ---
CALLED DR BLEDSOE REGARDING PT PULLING IV OUT AND UPDATE ON MOST RECENT BLOOD PRESSURES. NO NEW ORDERS AT THIS TIME.
--- NOTE | 2016-09-27 07:00 | NUR ---
BEDSIDE HANDOFF REPORT RECEIVED FROM SENIOR QUALITY ASSURANCE SPECIALIST RN. PT RESTING IN BED. PT DENIES NEEDS AT THIS TIME. PN 2L NC, O2 SATS 95%.
--- NOTE | 2016-09-27 07:52 | NUR ---
PATIENT WAS AWAKE RESTING IN BED. I TOOK HER TO THE BATHROOM AND GOT HER SETTLED IN HER CHAIR. I DID A COMPLETE LINEN CHANGE. ALSO GOT HER A NEW PATIENT WRISTBAND HERS WASNT ON.
[2016-09-27] MEDS ORDERED: MILK OF MA400 MG/5 M PO (09:42)
[2016-09-27] MEDS ORDERED: FLEET ENEMA133 ML PR (09:42)
[2016-09-27] MEDS ORDERED: DULCOLAX10 MG PR (09:42)
[2016-09-27] MEDS ORDERED: MIRALAX17 GM PO (09:45)
[2016-09-27] MEDS ORDERED: SENOKOT-S TABL1 EACH PO (09:46)
[2016-09-27] MEDS ORDERED: TUMS200 MG PO (09:48)
--- NOTE | 2016-09-27 09:48 | NUR ---
TALKED WITH NISHA FROM [facility], FAXING CHART NOTES INCLUDING FACESHEET, ER NOTES, H AND P, PROG NOTES, OR NOTES, IMAGING, MEDS, LABS, AND PT EVAL AND NOTES. IN A SEPARATE FAX FAXED THE ORDERS AND PASRR TO T.
[2016-09-27] MEDS ORDERED: MAG-AL LIQUID30 ML PO (09:50)
--- NOTE | 2016-09-27 10:30 | NUR ---
PT RESTIGN IN BED.
--- NOTE | 2016-09-27 10:33 | NUR ---
TALKED TO PT REGARDING HER DC TO [facility] THIS AM, PT STATES SHE IS FEELING MUCH BETTER THIS MORNING THAN SHE WAS YESTERDAY.
--- NOTE | 2016-09-27 10:36 | NUR ---
PATIENT WAS STILL IN CHAIR. I ASSISTED HER TO THE BATHROOM AND THEN BACK TO BED. I GOT HER FRESH ICE WATER. PATIENT IS DOING OKAY AND HAS CALL LIGHT IN HAND.
[2016-09-27] MEDS ORDERED: PROTONIX40 MG PO (10:48)
--- NOTE | 2016-09-27 12:12 | NUR ---
CALLED AND INFORMED PT FRIEND JENNI THAT PT HAD BEEN MOVED TO [facility] PER PT REQ.
--- NOTE | 2016-09-27 13:40 | NUR ---
[id number] WITH PT SHE WAS PREPARING TO BE DC'D. SHE HAD A SWEET SMILE, WORM GREETING. SHE SEEMED READY TO GO. EXTENDED A BLESSING TO HER-SHE THANKED ME
--- NOTE | 2016-10-02 09:57 | OR ---
[facility] [address], [place] [address] Signed DATE OF SERVICE: 09/27/2016 ADMISSION DIAGNOSIS: Right hip fracture, intertrochanteric. DISCHARGE DIAGNOSIS: Right hip fracture, intertrochanteric. Postoperative anemia. PROCEDURE PERFORMED DURING THIS HOSPITALIZATION: Right hip ORIF. Transfusion with 2 units of packed red blood cells. BRIEF HISTORY: Princess is an 81-year-old female, who suffered a ground level fall after a syncopal episode. She fractured her hip, was admitted to the hospital under my service. I had to go to the operating room, fixed her hip fract ure that afternoon. She subsequently was taken to the recovery room and subsequently to orthopedic floor, she did well except for yesterday when she had afair amount of nausea, was unable to take her pain pills. That has resolved and she is ready [facility] care facility. Shewas placed on DVTprophylaxis with SCDs, TEDs, and Xarelto 10 mg p.o. daily duringher hospital stay. She will be continued on thatfor 30 days. Pain control was accomplished with [place] 7.5, and she will be continued on that. She will follow up with [facility] 7-10 days. Patient will remain toe-touch weightbearing on her right lower extremity withphysical therapy. Should any problems arise, she will contact me or the nursing facility again. Jeanette Phan MD BA/Clifford /[id number] Electronically Signed By: JEANETTE PHAN MD 10/02/16 0957 PATIENT NAME: PRINCESS ROLAND OPERATIVE REPORT DATE OF : 37 PHYSICIAN: JEANETTE PHAN MD REPORT #: [id number] REPORT IS CONFIDENTIAL AND NOT TO BE RELEASED WITHOUT AUTHORIZATION
--- NOTE | 2016-10-30 07:09 | DS ---
[facility] [address] [place], [place] [address] Signed ADMISSION DIAGNOSIS Right hip fracture, intertrochanteric. DISCHARGE DIAGNOSIS Right hip fracture, intertrochanteric. Postoperative anemia. PROCEDURE PERFORMED DURING THIS HOSPITALIZATION 1. Right hip ORIF. 2. Transfusion with 2 units of packed red blood cells. BRIEF HISTORY Princess is an 81-year-old female, who suffered a ground level fall after a syncopal episode. She fractured her hip, was admitted to the hospital under my service. I had to go to the operating room, fixed her hip fracture that afternoon. She subsequently was taken to the recovery room and subsequently to orthopedic floor, she did well except for yesterday when she had a fair amount of nausea, was unable to take her pain pills. That has resolved and [facility]. She was placed on DVT prophylaxis with SCDs, TEDs, and Xarelto 10 mg p.o. daily during her hospital stay. She will be continued on that for 30 days. Pain control was accomplished with [place] 7.5, and she will be continued on that. She will follow up with me in 7-10 days. Patient will remain toe-touch weightbearing on her right lower extremity with physical therapy. Should any problems arise, she will contact me or the nursing facility again. Jeanette Phan MD BA/Clifford /[id number] Electronically Signed By: JEANETTE PHAN MD 10/30/16 0709 PATIENT NAME: PRINCESS ROLAND DISCHARGE SUMMARY DATE OF : 37 PHYSICIAN: JEANETTE PHAN MD REPORT #: [id number] REPORT IS CONFIDENTIAL AND NOT TO BE RELEASED WITHOUT AUTHORIZATION
== END 2016-09-27 10:58 | DRG 481 ==
LOC: ED 06:13 → MS 08:30
PROVIDERS: ADMIT Specialist
PROC: 0QS604Z Reposition Right Upper Femur with Internal Fixation Device, Open Approach (ICD-10-PCS; principal; 2016-09-22 15:00)
PROC: 30233N1 Transfusion of Nonautologous Red Blood Cells into Peripheral Vein, Percutaneous Approach (ICD-10-PCS; 2016-09-23)
DX: S72.21XA Displaced subtrochanteric fracture of right femur, initial encounter for closed fracture (principal); D62 Acute posthemorrhagic anemia; W19.XXXA Unspecified fall, initial encounter; Z91.81 History of falling; R10.13 Epigastric pain; I10 Essential (primary) hypertension; G40.909 Epilepsy, unspecified, not intractable, without status epilepticus; E78.5 Hyperlipidemia, unspecified; E03.9 Hypothyroidism, unspecified; K59.00 Constipation, unspecified; R52 Pain, unspecified
CPT/HCPCS: 01210; 36415; 36430; 64447; 71010; 72040; 73502; 80048; 80053; 81001; 85025; 86850; 86900; 86901; 86920; 93005; 93010; 94762; 97110; 97116; 97162; 97530; C1713; C1769; J0690; J1100; J1170; J1885; J2250; J2270; J2274; J2370; J2405; J2550; J2704; J2795; J3010; J7030; J7040; J7120; P9016

== ENCOUNTER 2017-05-03 13:29 | Emergency (ER) | payer MEDICARE, OTHER ==
[~2017-05-03] VITALS: Ht 149.9 cm; Wt 42.2 kg
[~2017-05-03 13:29] MED LIST changes: +DULCOLAX10 MG PR; +FLEET ENEMA133 ML PR; +HYDROCODON-ACE1 EA11 PO; +LASIX20 MG PO; +MAG-AL LIQUID30 ML PO; +MILK OF MA400 MG/5 M PO; +MIRALAX17 GM PO; +PROTONIX40 MG PO; +SENOKOT-S TABL1 EACH PO; +TUMS200 MG PO; +XARELTO10 MG PO
== END 2017-05-03 15:45 | disposition home or self-care (01) ==
LOC: ED 13:29
DX: S80.01XA Contusion of right knee, initial encounter (principal); E78.00 Pure hypercholesterolemia, unspecified; G40.909 Epilepsy, unspecified, not intractable, without status epilepticus; Z88.5 Allergy status to narcotic agent; Z88.8 Allergy status to other drugs, medicaments and biological substances; Z79.899 Other long term (current) drug therapy; W18.30XA Fall on same level, unspecified, initial encounter
CPT/HCPCS: 73560; 99284

== ENCOUNTER 2018-05-17 07:40 | Emergency (ER) | payer MEDICARE, OTHER ==
[~2018-05-17] VITALS: Ht 149.9 cm; Wt 40.8 kg
--- OUTSIDE RECORDS SUMMARY | 2018-05-17 07:42 | XMS ---
PreManage Notification: PATO ROLAND Security Brewery Technician Events No recent Security Events currently on file CRITERIA MET - POL CARE PROVIDERS Manohar Phan Treatment Current PHONE: Unknown [facility] [place] [facility] Current Orthopedic Surgery \T\ Fracture Clinic PHONE: Unknown NICOLE GALARZA Primary Care 02/17/2012-Current PHONE: Unknown Ahsan has no Care Guidelines for this patient. Gina VISIT COUNT (12 MO.) 1 ROXANA [place] TOTAL 1 NOTE: Visits indicate total known visits. ED/UCC VISIT TRACKING (12 MO.) 05/17/2018 07:41 ROXANA [facility] OR TYPE: Emergency COMPLAINT: - ABD PAIN INPATIENT VISIT TRACKING (12 MO.) No inpatient visits to display in this time frame [email or web address]
[2018-05-17] MEDS ORDERED: SPIRONOLACTONE50 MG PO (07:50)
[2018-05-17] MEDS ORDERED: OMEPRAZOLE20 MG PO (07:50)
[2018-05-17] MEDS ORDERED: COLACE100 MG PO (14:24)
[2018-05-17] MEDS ORDERED: ONDANSETRON ODT8 MG PO (14:24)
== END 2018-05-17 14:44 | disposition home or self-care (01) ==
LOC: ED 07:40
DX: K59.00 Constipation, unspecified (principal); G40.909 Epilepsy, unspecified, not intractable, without status epilepticus; E78.00 Pure hypercholesterolemia, unspecified; Z90.710 Acquired absence of both cervix and uterus; Z88.2 Allergy status to sulfonamides; Z88.4 Allergy status to anesthetic agent; Z79.899 Other long term (current) drug therapy
CPT/HCPCS: 51701; 74022; 74177; 80053; 81001; 83690; 85025; 87502; 99284-25; J1170; J2405; J7120; Q9967

== ENCOUNTER 2018-09-02 06:18 | Emergency (ER) | payer MEDICARE, OTHER ==
[~2018-09-02] VITALS: Ht 149.9 cm; Wt 43.1 kg
[~2018-09-02 06:18] MED LIST changes: +OMEPRAZOLE20 MG PO; +ONDANSETRON ODT8 MG PO; +SPIRONOLACTONE50 MG PO
== END 2018-09-02 09:24 | disposition home or self-care (01) ==
LOC: ED 06:18
DX: R42 Dizziness and giddiness (principal); Z90.49 Acquired absence of other specified parts of digestive tract; Z90.89 Acquired absence of other organs; Z90.710 Acquired absence of both cervix and uterus; Z88.5 Allergy status to narcotic agent; Z88.4 Allergy status to anesthetic agent; Z79.899 Other long term (current) drug therapy
CPT/HCPCS: 36415; 70450; 80053; 81001; 85025; 85610; 85730; 99284-25

== ENCOUNTER 2019-07-02 11:13 | Emergency (ER) | payer MEDICARE, OTHER ==
[~2019-07-02] VITALS: Ht 149.9 cm; Wt 44.0 kg
[2019-07-02] MEDS ORDERED: ONDANSETRON ODT4 MG PO (13:57)
== END 2019-07-02 14:11 | disposition home or self-care (01) ==
LOC: ED 11:13
DX: K29.70 Gastritis, unspecified, without bleeding (principal); G40.909 Epilepsy, unspecified, not intractable, without status epilepticus; I10 Essential (primary) hypertension; Z88.5 Allergy status to narcotic agent; Z88.8 Allergy status to other drugs, medicaments and biological substances; Z79.899 Other long term (current) drug therapy
CPT/HCPCS: 80053; 81001; 83690; 83735; 84484; 85025; 96361; 96374; 99284-25; J2405; J7030

== ENCOUNTER 2021-04-27 03:50 | Emergency (ER) | payer MEDICARE, OTHER ==
[~2021-04-27] VITALS: Ht 149.9 cm; Wt 44.0 kg
[~2021-04-27 03:50] MED LIST changes: +ONDANSETRON ODT4 MG PO
== END 2021-04-27 07:03 | disposition home or self-care (01) ==
LOC: ED 03:50
DX: S20.212A Contusion of left front wall of thorax, initial encounter (principal); I10 Essential (primary) hypertension; G40.909 Epilepsy, unspecified, not intractable, without status epilepticus; E78.00 Pure hypercholesterolemia, unspecified; Z88.5 Allergy status to narcotic agent; Z88.8 Allergy status to other drugs, medicaments and biological substances; Z79.899 Other long term (current) drug therapy; W22.8XXA Striking against or struck by other objects, initial encounter
CPT/HCPCS: 36415; 71046; 74177; 80048; 85025; 99284-25; Q9967

== ENCOUNTER 2021-05-12 10:43 | Emergency (ER) | payer OTHER, MEDICARE ==
[~2021-05-12] VITALS: Ht 149.9 cm; Wt 46.3 kg
== END 2021-05-12 13:48 | disposition home or self-care (01) ==
LOC: ED 10:43
DX: S39.92XA Unspecified injury of lower back, initial encounter (principal); I10 Essential (primary) hypertension; G40.909 Epilepsy, unspecified, not intractable, without status epilepticus; E78.00 Pure hypercholesterolemia, unspecified; Z88.8 Allergy status to other drugs, medicaments and biological substances; Z88.5 Allergy status to narcotic agent; Z79.899 Other long term (current) drug therapy; W07.XXXA Fall from chair, initial encounter
CPT/HCPCS: 99283

== ENCOUNTER 2022-06-25 08:02 | Emergency (ER) | payer MEDICARE, OTHER ==
[~2022-06-25] VITALS: Ht 149.9 cm; Wt 46.3 kg
== END 2022-06-25 10:05 | disposition home or self-care (01) ==
LOC: ED 08:02
DX: S16.1XXA Strain of muscle, fascia and tendon at neck level, initial encounter (principal); R51.9 Headache, unspecified; W18.30XA Fall on same level, unspecified, initial encounter; I10 Essential (primary) hypertension; Z88.8 Allergy status to other drugs, medicaments and biological substances; Z88.4 Allergy status to anesthetic agent; Z79.899 Other long term (current) drug therapy
CPT/HCPCS: 70450; 72125; 99284-25; A9270

== ENCOUNTER 2024-05-06 13:27 | Emergency (ER) | payer MEDICARE, OTHER ==
[~2024-05-06] VITALS: Ht 149.9 cm; Wt 59.9 kg
[2024-05-06] MEDS ORDERED: ASPIRIN 81 MG CHEW PO ONE (13:45)
[2024-05-06 14:24] LABS: ALBUMIN 3.3 g/dL (3.4-5.0); ALBUMIN/GLOBULIN RATIO 1.06 (1.1-2.4); ANION GAP 11.6 (7-21); BILIRUBIN, TOTAL 0.4 mg/dL (0.2-1.0); BUN/CREATININE RATIO 14.63 (6.0-28.6); CALCIUM 9.2 mg/dL (8.5-10.1); CREATININE, SERUM 0.82 mg/dL (0.55-1.02); MAGNESIUM 1.9 mg/dL (1.8-2.4); POTASSIUM 3.6 mmol/L (3.5-5.1); PROTEIN, TOTAL 6.4 g/dL (6.4-8.2)
[2024-05-06 14:28] LABS: BASOPHILS 0.7 % (0-2); HEMATOCRIT 40.4 % (35.0-50.0); HEMOGLOBIN 13.5 g/dL (12.0-18.0); LYMPHOCYTES 15.7 % (24-44); MCH 31.6 (27-36); MCHC 33.6 g/dl (30-36); MCV 94.2 fl (81-99); NEUTROPHILS 77.6 % (39-80); PLATELET COUNT 242 K/uL (140-440); RBC 4.28 M/ul (4.3-5.7); RDW 13.1 (10.5-15.0)
[2024-05-06] MEDS ORDERED: NITROGLYCERIN 0.4 MG SUBL SL ONE (16:30)
--- NOTE | 2024-05-06 17:45 | EKG ---
[facility] [address] [facility] [place], [place] [address] Signed Sinus rhythm with 1st degree AV block Minimal voltage criteria for LVH, may be normal variant ( R in aVL ) Borderline ECG When compared with ECG of 22-SEP-2016 07:13, No significant change was found Confirmed by Wendy Guerra MD ([id number]) on 05/06/2024 5:45:19 PM Electronically Signed By: WENDY GUERRA MD 05/06/24 1745 PATIENT NAME: PATO ROLAND Electrocardiogram DATE OF : 37 PHYSICIAN: WENDY GUERRA MD REPORT #: [id number] REPORT IS CONFIDENTIAL AND NOT TO BE RELEASED WITHOUT AUTHORIZATION
[2024-05-06] MEDS ORDERED: NITROSTAT0.4 MG SL (17:57)
[2024-05-06] MEDS ORDERED: LO-DOSE ASPIRIN81 MG PO (17:58)
[2024-05-06 18:15] VITALS: BP 134/48
== END 2024-05-06 18:16 | disposition home or self-care (01) ==
LOC: ED 13:27
PROVIDERS: Emergency Medicine
DX: I20.9 Angina pectoris, unspecified (principal); G40.909 Epilepsy, unspecified, not intractable, without status epilepticus; E78.00 Pure hypercholesterolemia, unspecified; I10 Essential (primary) hypertension; Z88.5 Allergy status to narcotic agent; Z88.4 Allergy status to anesthetic agent; Z79.899 Other long term (current) drug therapy
CPT/HCPCS: 36415; 71045; 80053; 83735; 84484; 85025; 93005; 93010; 99285-25

== ENCOUNTER 2024-07-10 09:45 | Emergency (ER) | payer MEDICARE, OTHER ==
[~2024-07-10] VITALS: Ht 149.9 cm; Wt 48.4 kg
[~2024-07-10 09:45] MED LIST changes: +LO-DOSE ASPIRIN81 MG PO; +NITROSTAT0.4 MG SL
[2024-07-10 10:10] LABS: BASOPHILS 0.8 % (0-2); EOSINOPHILS 0.1 % (0-6); HEMOGLOBIN 13.7 g/dL (12.0-18.0); LYMPHOCYTES 20.1 % (24-44); MCH 32.4 (27-36); MCV 92.5 fl (81-99); MONOCYTES 4.4 % (0-12); NEUTROPHILS 74.6 % (39-80); PLATELET COUNT 259 K/uL (140-440); RBC 4.22 M/ul (4.3-5.7); RDW 13.1 (10.5-15.0)
[2024-07-10 10:20] LABS: ANION GAP 12.3 (7-21); BUN/CREATININE RATIO 14.11 (6.0-28.6); CALCIUM 9.3 mg/dL (8.5-10.1); CREATININE, SERUM 0.85 mg/dL (0.55-1.02); INR 1.01 (0.80-1.30); POTASSIUM 4.3 mmol/L (3.5-5.1); PROTIME 12.7 Sec (11.2-14.2)
[2024-07-10 13:02] VITALS: BP 141/72
--- NOTE | 2024-07-10 22:58 | EKG ---
[facility] [address] [place] [address] Signed Sinus rhythm with 1st degree AV block Moderate voltage criteria for LVH, may be normal variant ( R in aVL , Lovejoy product ) Septal infarct , age undetermined Abnormal ECG When compared with ECG of 06-MAY-2024 13:30, No significant change was found Confirmed by Klever Reyes MD () on 07/10/2024 10:58:04 PM Electronically Signed By: KLEVER REYES MD 07/10/24 2258 PATIENT NAME: PATO ROLAND Electrocardiogram DATE OF : 37 PHYSICIAN: KLEVER ERYES MD REPORT #: [id number] REPORT IS CONFIDENTIAL AND NOT TO BE RELEASED WITHOUT AUTHORIZATION
== END 2024-07-10 13:02 | disposition home or self-care (01) ==
LOC: ED 09:45
PROVIDERS: Emergency Medicine
DX: S09.90XA Unspecified injury of head, initial encounter (principal); S70.12XA Contusion of left thigh, initial encounter; E78.00 Pure hypercholesterolemia, unspecified; I10 Essential (primary) hypertension; W18.30XA Fall on same level, unspecified, initial encounter; Z79.899 Other long term (current) drug therapy
CPT/HCPCS: 36415; 70450; 72170; 73552; 73590; 80048; 85025; 85610; 93005; 93010; 99284-25

== ENCOUNTER 2025-01-19 21:45 | Emergency (ER) | payer MEDICARE, OTHER ==
[~2025-01-19] VITALS: Ht 149.9 cm; Wt 50.0 kg
[2025-01-19] MEDS ORDERED: TRAMADOL HCL 50 MG TAB PO ONE (22:00)
[2025-01-19] MEDS ORDERED: IBUPROFEN 600 MG TAB PO ONE (22:00)
[2025-01-19] MEDS ORDERED: TRAMADOL HCL50 MG PO (23:02)
[2025-01-19] MEDS ORDERED: TRAMADOL HCL 50 MG HOME.PACK PO ONE (23:15)
[2025-01-20] MEDS ORDERED: TRAMADOL HCL 50 MG HOME.PACK PO ONE (07:30)
[2025-01-20 07:54] VITALS: BP 173/80
== END 2025-01-20 07:54 | disposition home or self-care (01) ==
LOC: ED 21:45
DX: S22.079A Unspecified fracture of T9-T10 vertebra, initial encounter for closed fracture (principal); S22.089A Unspecified fracture of T11-T12 vertebra, initial encounter for closed fracture; S32.019A Unspecified fracture of first lumbar vertebra, initial encounter for closed fracture; S32.029A Unspecified fracture of second lumbar vertebra, initial encounter for closed fracture; S32.039A Unspecified fracture of third lumbar vertebra, initial encounter for closed fracture; S32.049A Unspecified fracture of fourth lumbar vertebra, initial encounter for closed fracture; E78.00 Pure hypercholesterolemia, unspecified; I10 Essential (primary) hypertension; W06.XXXA Fall from bed, initial encounter; Z79.899 Other long term (current) drug therapy; Z88.5 Allergy status to narcotic agent; Z88.8 Allergy status to other drugs, medicaments and biological substances
CPT/HCPCS: 72080; 73502; 99283; A9270